=== PATIENT | male | born 1935 | race Caucasian/White ===

== ENCOUNTER 2017-08-18 18:17 | Emergency (ER) | payer MEDICARE, BC ==
[2017-08-18 18:33] VITALS: BP 133/54
--- NOTE | 2017-08-18 18:37 | UC ---
Skin Complaint HPI - HPI Summary HPI Summary: 81 y/o male presents to the urgent care accompany by c/o left leg w/ a sore which is scabbed, red, swollen and hot since last Saturday08/13/2017 evening. Pt reports he was going into the taxi back when he injured his left lower leg w/ the taxi step and pastured his skin. He thought it was going to get better on its own, but redness and swelling has increased. Pain is dull only when sitting 3/10 and relief w/ walking. Pt denies fever, SOB, calf pain, palpitations, chest pain, recent travel, Hx of DVT, abdominal pain, N/V/D. - History of Current Complaint Chief Complaint: UCLowerExtremity Time Seen by Provider: 08/18/17 18:35 Stated Complaint: L LEG INJURY Hx Obtained From: Patient Onset/Duration: Gradual Onset, Lasting Days - 5 days, Still Present, Worse Since - 2 days Skin Exposure Onset/Duration: Days Ago - 5 days Timing: Constant Onset Severity: Mild Current Severity: Moderate Pain Intensity: 2 - when sitting Pain Scale Used: 0-10 Numeric Location: Discrete - left lower leg Character: Swelling, Redness, Raised, Painful Aggravating Factor(s): Touch Alleviating Factor(s): Nothing Associated Signs & Symptoms: Positive: Rash, Tenderness. Negative: Numbness, Fever, Chills, Drainage Related History: Trauma - injury to left loer leg with a metal step - Allergy/Home Medications Allergies/Adverse Reactions: Allergies Allergy/AdvReac Type Severity Reaction Status Date / Time No Known Allergies Allergy Verified 08/18/17 18:33 Home Medications: Home Medications Finasteride [Proscar] 5 mg PO 08/18/17 [History] Review of Systems Constitutional: Negative Skin: Other - left lowe leg redess w/ a scabb and swelling s/p injury Eyes: Negative ENT: Negative Respiratory: Negative Cardiovascular: Negative Gastrointestinal: Negative Genitourinary: Negative Motor: Negative Neurovascular: Negative Musculoskeletal: Other: - left lower leg pain s/p injury Neurological: Negative Psychological: Negative Is Patient Immunocompromised?: No All Other Systems Reviewed And Are Negative: Yes PMH/Surg Hx/FS Hx/Imm Hx Previously Healthy: Yes Other GI/ History: BPH - Surgical History Surgical History: None - Family History Known Family History: Positive: Cardiac Disease - Social History Occupation: Retired Lives: With Family Alcohol Use: Weekly Substance Use Type: None Smoking Status (MU): Never Smoked Tobacco - Immunization History Hx Tetanus, Diphtheria Vaccination: No Physical Exam - Summary Physical Exam Summary: Vital Signs Reviewed: Yes General: well developed, well nourished male sitting in the examining table w/ o any apparent distress. Eyes: Positive: Conjunctiva Clear - PERRLA, EOMI ENT: Positive: Normal ENT inspection, Hearing grossly normal, Pharynx normal, TMs normal Neck: Positive: Supple, Nontender, No Lymphadenopathy Respiratory: Positive: Chest nontender, Lungs clear, Normal breath sounds Cardiovascular: Positive: RRR, No Murmur, Pulses Normal Abdomen Description: Positive: Nontender, No Organomegaly, Soft. Negative: CVA Tenderness (R), CVA Tenderness (L) Bowel Sounds: Positive: Present Musculoskeletal: Positive: Strength Intact, ROM Intact, No Edema. Diameter of calves are equal. in size. Soft tissues of posterior lower legs are soft, supple , nontender and no palpable cords or evidence of thrombophlebitis. No evidence of gangrene or compartment syndrome. Medial thigh is without soft tissue swelling or tender to palpation. Negative Homans sign. Possible superficial thrombophlebitis with palpable, tender cords. No proximal lymphangitis or lymphadenopathy. Neurological Exam: Normal Psychological Exam: Normal Skin: Positive: rashes - LF mid lower leg RT ventral side w/ an erythematous patch w/ indistinct borders surrounding a central yellowish crusting which is raised, warm to touch, swelling and tender to palpation. Paths is about 12 cm x 8cm in size. FROM of the leg, sensation intact, pulses WNL, capillary refill intact Triage Information Reviewed: Yes Vital Signs: Initial Vital Signs Temp 98.8 F 08/18/17 18:26 Pulse 68 08/18/17 18:26 Resp 16 08/18/17 18:26 BP 133/54 08/18/17 18:26 Pulse Ox 98 08/18/17 18:26 Course/Dx - Course Course Of Treatment: 81 y/o male presents to the urgent care accompany by c /o left leg w/ a sore which is scabbed, red, swollen and hot since last Saturday08/13/2017 evening. Pt reports he was going into the taxi back when he injured his left lower leg w/ the taxi step and pastured his skin. He thought it was going to get better on its own, but redness and swelling has increased. Pain is dull only when sitting 3/10 and relief w/ walking. Pt denies fever, SOB, calf pain, palpitations, chest pain, recent travel, Hx of DVT, abdominal pain, N/V/ D. Hx obtained. Pt w/ cellulitis of left lower leg s/p injury. Pt's symptoms discussed w/ Dr Parsons since Pt may need IM ABx. Dr Parsons evaluated Pt and she agreed Pt need Rocephin IM inj and PO ABX and close f/u to see if symptoms are improving. Pt given an IM inj of Rocephin. Pt is not UTD w/ Tetanus vaccine , Pt given Vaccine by the nurse. Pt tolerated well IM injs. Pt Rx Keflex PO, and topical Bacitracin. Rash demarcated with a skin marker and Advised if rash doubles in size and if she develops fever to go to the ER for further treatment. wound cleaned and Bacitracin oint applied over and wound dressed w/ sterile gauze. Pt advised to f/u w/ PCP in 1-2 days for f/u check up to see if symptoms are improving. D/c instructions explained. Pt understood and agreed. Pt left the clinic hemodynamically stable, A&Ox3 - Differential Diagnoses - Skin Complaint Differential Diagnoses: Abscess, Cellulitis, Local Allergic Reaction, MRSA, Other - DVT, - Diagnoses Provider Diagnoses: 1- left lower leg cellulitis s/p injury - Physician Notification/Consults Discussed Patient Care With: Ruth Parsons - DR Parsons agreed w/ Pt's plan of care Discharge - Sign-Out/Discharge Documenting (check all that apply): Discharge/Admit/Transfer - Discharge Plan Condition: Stable Disposition: HOME Prescriptions: Acetaminophen TAB* [Tylenol TAB*] 650 mg PO Q6H PRN #30 tab PRN Reason: Pain Bacitracin OINTMENT* 1 applic TOPICAL BID #1 tube Cephalexin CAP* [Keflex CAP*] 500 mg PO QID #28 cap Patient Education Materials: Cellulitis (ED) Referrals: Trish Galicia MD [Primary Care Provider] - 1 Day Additional Instructions: 1-Please take full course of Antibiotic starting tomorrow. You were given Rocephin IM inj today 2- If redness and swelling doubles in size beyond what was demarcated after 48 hrs of taking antibiotic and fever develops please go to the ER immediately. 3-Avoid standing for long periods of time or flexing your leg, keep it elevated and keep wound clean and dry. Apply Bacitracin ointment over the wound as directed. 4-Please F/u with your PCP in 1 day for a close check up and make sure your symptoms are improving.. - Billing Disposition and Condition Condition: STABLE Disposition: HOME
[2017-08-18] MEDS ORDERED: cefTRIAXone VIAL(*) 1,000 MG VIAL IM ONE (19:07)
[2017-08-18] MEDS ORDERED: Lidocaine 1% MPF* 2 ML VIAL INJ ONE (19:08)
[2017-08-18] MEDS ORDERED: Tetan/Diph/Pertus SYR(Tdap)* 0.5 ML SYR(BOOSTRIX) use SYR IM ONE (19:27)
== END 2017-08-18 20:01 | disposition home or self-care (01) ==
LOC: UCEAST 18:17
DX: L03.116 Cellulitis of left lower limb (principal); Z23 Encounter for immunization; N40.0 Benign prostatic hyperplasia without lower urinary tract symptoms
CPT/HCPCS: 90471; 90715; 96372; 99212; G0463; J0696

== ENCOUNTER 2020-01-26 09:24 | Inpatient (IN) ==
[2020-01-26 10:11] LABS: ABS Eosinophils 0.1 10^3/ul (0-0.6); ABS Lymphocytes 1.5 10^3/ul (1.0-4.8); ABS Monocytes 0.5 10^3/ul (0-0.8); ABS Neutrophils 3.8 10^3/ul (1.5-7.7); Eosinophil % 2.4 %; Hematocrit 40 % (42-52); Hemoglobin 13.7 g/dL (14.0-18.0); Lymphocyte % 25.4 %; Mean Corpuscular HGB Conc 34 g/dL (31-36); Mean Corpuscular Hemoglobin 33 pg (27-31); Mean Corpuscular Volume 97 fL (80-94); Mean Platelet Volume 7.5 fL (7.4-10.4); Platelet Count 220 10^3/uL (150-450); Red Blood Count 4.12 10^6 /uL (4.18-5.48); Red Cell Distribution Width 14 % (10-15); White Blood Count 5.9 10^3/uL (3.5-10.8)
[2020-01-26 10:26] LABS: Troponin I 0.01 ng/mL (<0.03)
[2020-01-26 10:29] LABS: Activated Partial Thrombo Time 33.1 seconds (26.0-38.0); INR 1.03 (0.82-1.09)
[2020-01-26 10:30] LABS: Albumin 4.1 g/dL (3.2-5.2); Albumin/Globulin Ratio 1.3 (1-3); BUN/Creatinine Ratio 17.2 (8-20); CKMB ng/mL 3.6 ng/mL (0.6-6.3); Calcium 9.2 mg/dL (8.6-10.3); EGFR African American 93.7 (>60); EGFR Non-African American 77.4 (>60); Globulin 3.2 g/dL (2-4); Magnesium 1.9 mg/dL (1.9-2.7); Potassium 4.3 mmol/L (3.5-5.0); Total Bilirubin 0.6 mg/dL (0.2-1.0); Total Protein 7.3 g/dL (6.4-8.9)
[2020-01-26 10:59] LABS: TSH Ultra Thyroid Stim Horm 10.69 mcIU/mL (0.34-5.60)
[2020-01-26] MEDS ORDERED: Al Hydrox/Mg Hydrox/Simet LIQ 30 ML UDC PO PRN (11:37)
[2020-01-26 12:06] LABS: Free T4 0.74 ng/dL (0.61-1.12)
[2020-01-26] MEDS: Carboxymethylcellulose/Glyceri 10 ML OPHTH.GEL lubricant eye gel BOTH EYES SCH (21:08)
[2020-01-26] MEDS: Heparin 5000 UNITS/ML 1 mL VIAL SUBCUT SCH (21:08)
[2020-01-26 21:36] LABS: Urine Appearance Clear; Urine Bilirubin Negative (Negative); Urine Blood Negative (Negative); Urine Color Yellow; Urine Glucose Negative (Negative); Urine Ketones Negative (Negative); Urine Nitrite Negative (Negative); Urine Protein Negative (Negative); Urine Specific Gravity 1.011 (1.010-1.030); Urine Urobilinogen Negative (Negative)
[2020-01-27] MEDS: Heparin 5000 UNITS/ML 1 mL VIAL SUBCUT SCH ×3 (05:23→21:16)
[2020-01-27] MEDS: Aspirin EC 81 mg TAB.EC (enteric coated) PO SCH (08:02)
[2020-01-27] MEDS ORDERED: Influenza VAC *QUAD* 2020-21* 0.5 ML SYRINGE IM ONE (09:00)
[2020-01-27] MEDS: Carboxymethylcellulose/Glyceri 10 ML OPHTH.GEL lubricant eye gel BOTH EYES SCH (21:16)
[2020-01-28] MEDS ORDERED: ceFAZolin 2 GM PREMIX 2 GM/50 ML BAG IVPB ONE (07:00)
[2020-01-28] MEDS: NS 0.9% 1000 ml BAG 1,000 ML IV SCH (07:28)
[2020-01-28] MEDS: Aspirin EC 81 mg TAB.EC (enteric coated) PO SCH (09:00)
[2020-01-28] MEDS ORDERED: SODIUM CHLORIDE 0.9% IVPB ONE (13:00)
[2020-01-28] MEDS ORDERED: CEFAZOLIN IVPB ONE (13:00)
[2020-01-28] MEDS ORDERED: fentaNYL 100 mcg/2 ml 50 MCG/ML VIAL ONE (14:58)
[2020-01-28] MEDS ORDERED: Naloxone 0.4 mg VIAL 0.4 mg/ml 1 ml VIAL ONE (14:58)
[2020-01-28] MEDS ORDERED: Flumazenil 0.5 mg/5 ml 0.1 MG/ML 5 ml VIAL ONE (14:58)
[2020-01-28] MEDS ORDERED: Midazolam 5 mg/5 ml VIAL 1 mg/ml 5 ml VIAL (5 mg) ONE (14:58)
[2020-01-28] MEDS ORDERED: Lidocaine 1% VIAL 10 MG/ML VIAL ONE (14:59)
[2020-01-28] MEDS: Carboxymethylcellulose/Glyceri 10 ML OPHTH.GEL lubricant eye gel BOTH EYES SCH (21:24)
[2020-01-29] MEDS: ceFAZolin VIAL 1 GM in NS 0.9% 50 ML 50 ML IVPB SCH ×2 (00:35→08:10)
[2020-01-29] MEDS: NS 0.9% 1000 ml BAG 1,000 ML IV SCH (04:03)
[2020-01-29] MEDS: Aspirin EC 81 mg TAB.EC (enteric coated) PO SCH (08:10)
[2020-01-29 12:26] VITALS: BP 165/65
== END 2020-01-29 14:50 | disposition home or self-care (01) | DRG 244 ==
LOC: ED 09:24 → MEDTELE 11:37
PROVIDERS: ADMIT Pediatrics; ATTEND Hospitalist